=== PATIENT | female | born 1990 | race Caucasian/White ===

== ENCOUNTER 2016-05-01 16:28 | Emergency (ER) | payer MEDICAID ==
[~2016-05-01 16:28] MED LIST: MACR100C2 PO; PREN29TA PO; REGL10TA5 PO
--- NOTE | 2016-05-01 16:48 | PD ---
HPI Chief Complaint vaginal bleeding Date Seen: May 01, 2016 Time Seen: 16:40 (Kobi Manzanares MD R2) Travel History International Travel<30 Days: No Contact w/Intl Traveler<30Days: No (Kobi Manzanares MD) History of Present Illness HPI 25 year old at 16 weeks gestation presents with vaginal bleeding. She urinated today and noticed a small amount of blood. This is the only bleed she has noticed so far. It happened at 2 PM yesterday. She is not requiring any pads. She has stomach pain on the right mid abdomen that started last night. It is a 5/10. She reports no recent sexual intercourse. She has no contractions, loss of clear fluid, and is feeling the baby move. She is a patient at [facility] and reports she is up to date on care. She reports no complications in this to date. She has one miscarriage in the past at 9 weeks gestation. (Kobi Manzanares MD) History Past Medical History Narrative Medical None (Kobi Manzanares MD) Obstetric History Obstetric History Miscarriage at 9 weeks Up to date on care [facility] for OB care (Kobi Manzanares MD) Past Surgical History Narrative Surgical tonsil removal (Kobi Manzanares MD) Family History Narrative Family History Father: gallbladder cancer, heart disease Mother: ataxia (Kobi Manzanares MD) Social History Narrative Social History Smokes 5 cigarettes per day no drinking or drug use (Kobi Manzanares MD R2) Allergies-Medications (Allergen,Severity, Reaction): Coded Allergies: Tylenol #3 (Verified Allergy, Intermediate, HEART PALPATIONS, 05/01/16) Home Meds Active Scripts Vit-Iron Carbonyl ( Plus Iron 29-1 mg)1 Tab Tab1 Tab PO DAILY #30 TAB Ref 0 Prov:Sweetie Sanz DO 02/22/16 Discontinued Scripts Metoclopramide (Reglan)10 Mg Tab10 Mg PO QID PRN (NAUSEA) #20 TAB Ref 0 Prov:Sweetie Sanz DO 02/22/16 Nitrofurantoin Monohydrate Macrocrystals (Macrobid)100 Mg [id number] Mg PO BID #10 CAP Ref 0 Prov:Sweetie Sanz DO 02/22/16 Review of Systems General / Constitutional: Weight Gain, No: Fever, Weight Loss, Chills Eyes: No: Diploplia, Blurred Vision, Visual changes, Pain HENT: No: Headaches, Vertigo, Lightheadedness Cardiovascular: No: Irregular Rhythm, Chest Pain or Discomfort, Palpitations, Tachycardia, Syncope Respiratory: No: Cough, Short of Breath, Wheezing Gastrointestinal: Abdominal Pain, No: Nausea, Vomiting, Diarrhea Genitourinary: No: Urgency, Frequency, Dysuria Musculoskeletal: No: Weakness, Cramping, Edema Skin: No Rash, No Itching Neurologic: No: Weakness, Dizziness, Syncope, Focal Abnormalities, Coordination Problem, Headache, Slurred Speech Psychiatric: No: Anxiety, Depression Endocrine: No: Heat Intolerance, Cold Intolerance, Polydipsia, Polyuria (Kobi Manzanares MD R2) Physical Exam Narrative GENERAL: Well-nourished, well-developed patient. SKIN: Warm and dry. HEAD: Normocephalic and atraumatic. EYES: No scleral icterus. No injection or drainage. ENT: No nasal drainage noted. Mucous membranes pink. Airway patent. NECK: Supple, trachea midline. No JVD. CARDIOVASCULAR: Regular rate and rhythm without murmurs, gallops, or rubs. RESPIRATORY: Breath sounds equal bilaterally. No accessory muscle use. ABDOMEN/GI: Abdomen soft, non-tender, bowel sounds present, no rebound, no guarding Gravid to [-] weeks size Fundal Height: [-] GENITOURINARY: External Genitalia: intact and normal in appearance Cervix: Non-friable, closed, no obvious source of bleeding on speculum exam Dilatation: closed Uterine Contractions: [-] FHT's: Category: [-] Baseline: [-] Reactive: [-] Variability: [-] Decels: [-] EXTREMITIES: No cyanosis or edema. BACK: Nontender without obvious deformity. No CVA tenderness. NEUROLOGICAL: Awake and alert. Motor and sensory grossly within normal limits. Five out of 5 muscle strength in all muscle groups. Normal speech. (Kobi Manzanares MD R2) Data Data Vital Signs Reviewed: Yes (Kobi Manzanares MD R2) [facility] Medical Record Reviewed: Yes Interpretation(s) 25 year old at 16 weeks gestation presents with vaginal bleeding, small amount of spotting - Point of care ultrasound - Speculum exam, assess for source of bleeding and cervical dilation - Urinalysis to rule out UTI Narrative Course / MDM 25 year old at 16 weeks gestation presents with vaginal bleeding, small amount of spotting. Likely implantation bleeding. - No obvious source of bleeding on speculum exam. - Cervix closed. - POC ultrasound shows viable fetus. - No history of cervical surgery, incompetent cervix unlikely - UA with moderate leukocyte esterase, rare bacteria, 12 WBC. Will wait on urine culture before treating, currently asymptomatic. Instruct patient or Kirsten Lux to call for results of urine culture. (Kobi Manzanares MD R2) Attending Attestation Patient seen and evaluated with resident under direct supervision, agree with assessment and plan. (Anshul Pinzon MD) Diagnosis Diagnosis: Primary Impression: Second trimester bleeding Additional Impression: Abnormal urinalysis Disposition: 01 DISCHARGE HOME Condition: Good Kobi Manzanares MD R2 May 01, 2016 16:48 Anshul Pinzon MD May 01, 2016 17:33
[2016-05-01 16:49] VITALS: RESP 18; TEMP 98
[2016-05-01 16:50] VITALS: BP 131/67; PULSE 74
[2016-05-01 17:04] LABS: BACTERIA, URINE RARE /hpf; BLOOD, URINE NEG (NEG); COMMENT (UR) CULTURE INDICATED; CULTURE IF INDICATED CULTURE INDICATED; GLUCOSE,URINE NEG (NEG); KETONE, URINE NEG (NEG); MUCUS URINE FEW /lpf (OCC); NITRITE,URINE NEG (NEG); PH, URINE 6.5 (5.0-8.5); SQUAMOUS EPITHELIAL CELL URINE 3 /hpf (0-5); URINE COLOR LIGHT-YELLOW (YELLW/STRAW)
== END 2016-05-01 18:24 | disposition home or self-care (01) ==
LOC: HOBED 16:28
DX: O26.852 Spotting complicating pregnancy, second trimester (principal); Z3A.16 16 weeks gestation of pregnancy; O99.332 Smoking (tobacco) complicating pregnancy, second trimester; R82.90 Unspecified abnormal findings in urine
CPT/HCPCS: 76815; 81001; 87086

== ENCOUNTER 2016-08-24 13:57 | Emergency (ER) | payer MEDICAID ==
[~2016-08-24 13:57] MED LIST changes: -MACR100C2 PO; -REGL10TA5 PO
--- NOTE | 2016-08-24 15:02 | PD ---
HPI Date Seen: August 24, 2016 Time Seen: 14:45 (Kobi Hair MD R1) Travel History International Travel<30 Days: No Contact w/Intl Traveler<30Days: No Known Affected Area: No (Kobi Hair MD R1) History of Present Illness HPI Patient is a 25 year old at 32 weeks gestational age who presented with decreased movement. She is playing outside yesterday with her son when she fell on her left side, falling on both her son and the ground. Since that time, she noticed decreased movement. She called Kirsten Lux last night , who told her to relax to better sense movement. She went to lie down and still noticed decreased movement, which is normal when she notices the most movement. This morning, she was still noticing decreased movement and she felt weird like something might be wrong. So she presented to the [facility]. since arriving here, patient endorses movement. She denied any leakage of fluid, vaginal bleeding, contractions. However, she reports that she did not know she was having contractions during her last . She endorses a headache since Wednesday, which seemed to get worse after falling yesterday. She endorses lower extremity swelling. She denies any chest pain, shortness of breath, right upper quadrant pain, vision changes. She denies any nausea, vomiting, dysuria, section transmitted disease. Para: 1 : 3 Last Menstrual Period: August 24, 2016 (Kobi Hair MD R1) History Past Medical History Narrative Medical Patient reports that she still has to get her diabetes screen done. Medical History: Denies Significant Hx (Kobi Hair MD R1) Obstetric History Obstetric History Patient reports that her first delivered at 37 weeks via vaginal delivery. It was unconjugated. Her second was a miscarriage. (Kobi Hair MD R1) Past Surgical History Narrative Surgical She reports tonsillectomy and adenoidectomy as a child. (Kobi Hair MD R1) Family History Narrative Family History Patient denies any significant family history of problems during . Family History: Negative (Kobi Hair MD R1) Social History Narrative Social History Patient reports that she lives at home with her mother, her son, and her brother. All of them are healthy. Alcohol Use: No Tobacco Use: Yes (patient reports smoking a couple cigarettes when she is stressed) Substance Abuse: No (Kobi Hair MD R1) Allergies-Medications (Allergen,Severity, Reaction): Coded Allergies: Tylenol #3 (Verified Allergy, Intermediate, HEART PALPATIONS, 05/01/16) Home Meds Active Scripts Nitrofurantoin Monohydrate Macrocrystals (Macrobid)100 Mg [id number] Mg PO BID #13 CAP Ref 0 Prov:Alivia Mathew MD R2 08/24/16 Vit-Iron Carbonyl ( Plus Iron 29-1 mg)1 Tab Tab1 Tab PO DAILY #30 TAB Ref 0 Prov:YvonSweetie L DO 02/22/16 Narrative Medication Patient reports only taking vitamins. (Kobi Hair MD R1) Review of Systems General / Constitutional: No: Fever, Chills Eyes: No: Blurred Vision, Visual changes HENT: Headaches Cardiovascular: Edema (always present, at baseline), No: Chest Pain or Discomfort Respiratory: No: Short of Breath Gastrointestinal: No: Nausea, Vomiting, Abdominal Pain Genitourinary: No: Dysuria Skin: No Rash Neurologic: Headache (Kobi Hair MD R1) Physical Exam Narrative GENERAL: Well-nourished, well-developed patient. SKIN: Warm and dry. HEAD: Normocephalic and atraumatic. EYES: No scleral icterus. No injection or drainage. ENT: No nasal drainage noted. Mucous membranes pink. Airway patent. NECK: Supple, trachea midline. No JVD. CARDIOVASCULAR: Regular rate and rhythm without murmurs, gallops, or rubs. RESPIRATORY: Breath sounds equal bilaterally. No accessory muscle use. ABDOMEN/GI: Abdomen soft, non-tender, bowel sounds present, no rebound, no guarding Gravid to 32 weeks size FHT's: Category: Category 1 Baseline: 140 Reactive: Reactive Variability: Moderate Variability Decels: No decelerations noted EXTREMITIES: No cyanosis or edema. BACK: Nontender without obvious deformity. No CVA tenderness. NEUROLOGICAL: Awake and alert. Motor and sensory grossly within normal limits. Five out of 5 muscle strength in all muscle groups. Normal speech. (Kobi Hair MD R1) Data Data Vital Signs Reviewed: Yes (Kobi Hair MD R1) MDM Plan Patient is a 25 year old at 32 weeks gestational age who presented with decreased movement after falling yesterday. 1) decreased movement status post trauma OB ultrasound with biophysical profile without nonstress test Monitor heart tones 2) contractions noted on monitor UA showed mod leuk est, 12 WBC, rare bacteria c/f UTI. Plan to treat with Macrobid 100mg po bid for 7 days. Encourage by mouth hydration Continue to monitor tocometry (Kobi Hair MD R1) Attending Attestation Pt seen and evaluated with resident. reassuring status no evidence of PTL normal ultrasound d/c home and f/u with routine care RH + (Porsche Mayberry MD) Disposition: 01 DISCHARGE HOME Scripts Nitrofurantoin Monohydrate Macrocrystals (Macrobid)100 Mg [id number] Mg PO BID #13 CAP Ref 0 Prov:Alivia Mtahew MD R2 08/24/16 Patient Instructions: Movement (ED) Kobi Hair MD R1 August 24, 2016 15:02 Alivia Mathew MD R2 August 24, 2016 16:43 Porsche Mayberry MD August 24, 2016 19:05
[2016-08-24 16:18] LABS: BACTERIA, URINE RARE /hpf; BLOOD, URINE NEG (NEG); COMMENT (UR) CULTURE INDICATED; CULTURE IF INDICATED CULTURE INDICATED; GLUCOSE,URINE NEG (NEG); KETONE, URINE NEG (NEG); NITRITE,URINE NEG (NEG); PH, URINE 7.5 (5.0-8.5); SQUAMOUS EPITHELIAL CELL URINE 1 /hpf (0-5); URINE COLOR LIGHT-YELLOW (YELLW/STRAW)
[2016-08-24] MEDS ORDERED: MACR100C2 PO (16:42)
[2016-08-24] MEDS ORDERED: NITROFURANTOIN MONOHYD MACROCR 100 MG CAP PO ONE (16:45)
== END 2016-08-24 20:48 | disposition home or self-care (01) ==
LOC: HOBED 13:57
DX: O36.8130 Decreased fetal movements, third trimester, not applicable or unspecified (principal); O23.33 Infections of other parts of urinary tract in pregnancy, third trimester; Z3A.32 32 weeks gestation of pregnancy; B96.89 Other specified bacterial agents as the cause of diseases classified elsewhere; W18.39XA Other fall on same level, initial encounter; Y93.89 Activity, other specified; Y92.89 Other specified places as the place of occurrence of the external cause; Y99.8 Other external cause status
CPT/HCPCS: 59025; 76816; 76819; 81001; 87086

== ENCOUNTER 2016-10-09 12:02 | Inpatient (IN) | payer MEDICAID ==
[2016-10-09] VITALS (54 sets, daily range): BP systolic 99–130; BP diastolic 40–94; PULSE 51–87; RESP 18; TEMP 97.7–98.7
[~2016-10-09 12:02] MED LIST changes: +MACR100C2 PO
--- NOTE | 2016-10-09 12:33 | PD ---
HPI Travel History International Travel<30 Days: No Contact w/Intl Traveler<30Days: No Known Affected Area: No History of Present Illness HPI This patient is a 25-year-old 3 para 1011 EDC is October 16, 2016 presently at 39 weeks. She presents with chief complaint of a pinkish discharge in her underwear she wiped and saw the pinkish discharge on the tissue no rupture of membranes not feeling any contractions. No rupture of membranes no headaches no blurred vision no nausea no vomiting no alvina bright red vaginal bleeding the baby is active care with Kirsten Lux course is significant for previous fall for which she was evaluated Treated for UTI Patient was seen on Wednesday by Kirsten Lux and she was 2 cm at that time Her GBS is positive History Past Medical History Narrative Medical Patient is allergic to codeine denies any medical problems Obstetric History Obstetric History First baby born April 10, 2013 male weight 6 lbs. 4 oz. vaginal delivery uncomplicated Spontaneous AB at 8 weeks Past Surgical History Narrative Surgical Surgeries include tonsils and adenoids Tubes in her ears Family History Narrative Family History Heart disease bladder cancer diabetes ataxia Social History Alcohol Use: No Tobacco Use: Yes (smokes a half a pack of cigarettes per day) Substance Abuse: No Allergies-Medications (Allergen,Severity, Reaction): Coded Allergies: Tylenol #3 (Verified Allergy, Intermediate, HEART PALPATIONS, 05/01/16) Home Meds Active Scripts Nitrofurantoin Monohydrate Macrocrystals (Macrobid)100 Mg [id number] Mg PO BID #13 CAP Ref 0 Prov:Alivia Mathew MD R2 08/24/16 Vit-Iron Carbonyl ( Plus Iron 29-1 mg)1 Tab Tab1 Tab PO DAILY #30 TAB Ref 0 Prov:Sweetie Sanz DO 02/22/16 Review of Systems Genitourinary: Other (pinkish vaginal discharge) Physical Exam Narrative GENERAL: Well-nourished, well-developed patient. Alert oriented 3 and cooperative in no acute distress SKIN: Warm and dry. HEAD: Normocephalic and atraumatic. EYES: No scleral icterus. No injection or drainage. ENT: No nasal drainage noted. Mucous membranes pink. Airway patent. CARDIOVASCULAR: Regular rate and rhythm without murmurs, gallops, or rubs. RESPIRATORY: Breath sounds equal bilaterally. No accessory muscle use. ABDOMEN/GI: Gravid consistent with stated gestational age no epigastric or right upper quadrant tenderness no palpable contractions the baby is active Gravid to [-] weeks size term Fundal Height: [-] GENITOURINARY: Speculum exam is done no bright red vaginal bleeding pinkish discharge no fluid in the vault External Genitalia: intact and normal in appearance no lesions seen BUS glands: [-] Cervix: [-] Midline Dilatation: [-] 2-3 Effacement: [-] 80% Station: [-] -2 Presentation: [-] Vertex Membranes: [intact Uterine Contractions: [-] Occasional FHT's: Category: [-] 1 Baseline: [-] 140 Reactive: [-]+ Variability: [-] Moderate Decels: [-] 0 EXTREMITIES: No cyanosis or edema. 2+ reflexes NEUROLOGICAL: Awake and alert. Motor and sensory grossly within normal limits. Five out of 5 muscle strength in all muscle groups. Normal speech. Data Data Vital Signs Reviewed: Yes (blood pressure 123/68 pulse is 81 afebrile) [facility] Medical Record Reviewed: Yes (pink heart reviewed) Interpretation(s) 25-year-old at 39 weeks No cervical change from exam on Wednesday Group B strep positive Narrative Course / MDM Patient reexamined after 1 hour 100% effaced 5 cm dilated with the vertex at a -2 station Membranes are intact Category 1 tracing vital signs are stable Will admit patient in active labor Group B strep is positive we'll place on penicillin Does not require an epidural at this time Anticipate vaginal delivery Plan Plan: External monitoring By mouth fluid hydration Observation and reevaluation Ally Chaudhari MD Oct 09, 2016 12:33
[2016-10-09] MEDS ORDERED: LACTATED RINGER'S 1000 ML INJ 1,000 ML IV PRN (13:26)
--- NOTE | 2016-10-09 13:29 | HHI.HP ---
History & Physical H&P Contact w/Intl Traveler<30Days: No Known Affected Area: No History of Present Illness HPI This patient is a 25-year-old 3 para 1011 EDC is October 16, 2016 presently at 39 weeks. She presents with chief complaint of a pinkish discharge in her underwear she wiped and saw the pinkish discharge on the tissue no rupture of membranes not feeling any contractions. No rupture of membranes no headaches no blurred vision no nausea no vomiting no alvina bright red vaginal bleeding the baby is active care with Kirsten Lux course is significant for previous fall for which she was evaluated Treated for UTI Patient was seen on Wednesday by Kirsten Lux and she was 2 cm at that time Her GBS is positive History (Limited) History Past Medical History Narrative Medical Patient is allergic to codeine denies any medical problems Obstetric History Obstetric History First baby born April 10, 2013 male infant weight 6 lbs. 4 oz. vaginal delivery uncomplicated Spontaneous AB at 8 weeks Past Surgical History Narrative Surgical Surgeries include tonsils and adenoids Tubes in her ears Family History Narrative Family History Heart disease bladder cancer diabetes ataxia Social History Alcohol Use: No Tobacco Use: Yes (smokes a half a pack of cigarettes per day) Substance Abuse: No Allergies-Medications Allergies-Medications (Allergen,Severity, Reaction): Coded Allergies: Tylenol #3 (Verified Allergy, Intermediate, HEART PALPATIONS, 05/01/16) Home Meds Active Scripts Nitrofurantoin Monohydrate Macrocrystals (Macrobid)100 Mg [id number] Mg PO BID #13 CAP Ref 0 Prov:Alivia Mathew MD R2 08/24/16 Vit-Iron Carbonyl ( Plus Iron 29-1 mg)1 Tab Tab1 Tab PO DAILY #30 TAB Ref 0 Prov:Sweetie Sanz DO 02/22/16 ROS Review of Systems Genitourinary: Other (pinkish vaginal discharge) Physical Exam Physical Exam Narrative GENERAL: Well-nourished, well-developed patient. Alert oriented 3 and cooperative in no acute distress SKIN: Warm and dry. HEAD: Normocephalic and atraumatic. EYES: No scleral icterus. No injection or drainage. ENT: No nasal drainage noted. Mucous membranes pink. Airway patent. CARDIOVASCULAR: Regular rate and rhythm without murmurs, gallops, or rubs. RESPIRATORY: Breath sounds equal bilaterally. No accessory muscle use. ABDOMEN/GI: Gravid consistent with stated gestational age no epigastric or right upper quadrant tenderness no palpable contractions the baby is active Gravid to [-] weeks size term Fundal Height: [-] GENITOURINARY: Speculum exam is done no bright red vaginal bleeding pinkish discharge no fluid in the vault External Genitalia: intact and normal in appearance no lesions seen BUS glands: [-] Cervix: [-] Midline Dilatation: [-] 2-3 Effacement: [-] 80% Station: [-] -2 Presentation: [-] Vertex Membranes: [intact Uterine Contractions: [-] Occasional FHT's: Category: [-] 1 Baseline: [-] 140 Reactive: [-]+ Variability: [-] Moderate Decels: [-] 0 EXTREMITIES: No cyanosis or edema. 2+ reflexes NEUROLOGICAL: Awake and alert. Motor and sensory grossly within normal limits. Five out of 5 muscle strength in all muscle groups. Normal speech. Data Data Data Vital Signs Reviewed: Yes (blood pressure 123/68 pulse is 81 afebrile) [facility] Medical Record Reviewed: Yes (pink heart reviewed) Interpretation(s) 25-year-old at 39 weeks No cervical change from exam on Wednesday Group B strep positive Narrative Course / MDM Patient reexamined after 1 hour 100% effaced 5 cm dilated with the vertex at a -2 station Membranes are intact Category 1 tracing vital signs are stable Will admit patient in active labor Group B strep is positive we'll place on penicillin Does not require an epidural at this time Anticipate vaginal delivery Plan Plan: External monitoring By mouth fluid hydration Observation and reevaluation Ally Chaudhari MD Oct 09, 2016 12:33 Ally Chaudhari MD Oct 09, 2016 13:29
[2016-10-09] MEDS ORDERED: LIDOCAINE HCL 1% 50 ML VIAL INFIL PRN (13:30)
[2016-10-09] MEDS ORDERED: SODIUM CHLORID 0.9% 500 ML INJ 500 ML IV PRN (13:30)
[2016-10-09] MEDS ORDERED: ONDANSETRON HCL 4 MG/2 ML VIAL IV PRN (13:30)
[2016-10-09] MEDS ORDERED: OXYTOCIN 30 UNITS-500ML PREMIX 500 ML IV ONE (13:30)
[2016-10-09] MEDS ORDERED: LIDOCAINE HCL 1% 50 ML VIAL I-DERMAL PRN (13:30)
[2016-10-09] MEDS ORDERED: CITRIC ACID-SODIUM CITRATE LIQ 30 ML UDC PO SCH (13:30)
[2016-10-09] MEDS ORDERED: MINERAL OIL 10 ML VIAL TOPICAL PRN (13:30)
[2016-10-09] MEDS ORDERED: SODIUM CHLOR 0.9% 1000 ML INJ 1,000 ML IV PRN (13:46)
[2016-10-09] MEDS ORDERED: PENICILLIN G POTASSIUM INJ 5,000,000 UNITS in SODIUM CHLORIDE 0.9% INJ 100 ML IV ONE (14:00)
[2016-10-09 14:16] LABS: AUTOMATED NEUTROPHIL # 7.7 TH/MM3 (1.8-7.7); BASOPHIL % 0.4 % (0.0-2.0); EOSINOPHIL # 0.1 TH/MM3 (0-0.4); EOSINOPHIL % 1.2 % (0.0-4.0); HEMATOCRIT 34.8 % (35.0-46.0); HEMO FLAGS DIFF FINAL; LYMPH % 18.5 % (9.0-44.0); LYMPHOCYTE # 1.9 TH/MM3 (1.0-4.8); MEAN CELL VOLUME 94.9 FL (80.0-100.0); MEAN CORPUSCULAR HGB CONC 34.7 % (32.0-36.0); NEUT % 73.9 % (16.0-70.0); PLATELET COUNT 190 TH/MM3 (150-450); RED BLOOD COUNT 3.67 MIL/MM3 (4.00-5.30); RED CELL DISTRIBUTION WIDTH 12.4 % (11.6-17.2); WHITE BLOOD COUNT 10.5 TH/MM3 (4.0-11.0)
[2016-10-09] MEDS: LACTATED RINGER'S 1000 ML INJ 1,000 ML IV SCH ×2 (14:19→18:02)
[2016-10-09 14:23] LABS: BACTERIA, URINE RARE /hpf; BLOOD, URINE MOD (NEG); COMMENT (UR) CULT NOT INDICATED; CULTURE IF INDICATED CULT NOT INDICATED; GLUCOSE,URINE NEG (NEG); KETONE, URINE NEG (NEG); NITRITE,URINE NEG (NEG); SQUAMOUS EPITHELIAL CELL URINE <1 /hpf (0-5); URINE COLOR LIGHT-YELLOW (YELLW/STRAW)
--- NOTE | 2016-10-09 14:48 | PD.LABORPN ---
Subjective Subjective Patient resting comfortably in bed, she is not feeling contractions. Objective Vital Signs Vital Signs Date Time Temp Pulse Resp B/P Pulse Ox O2 Delivery O2 Flow Rate FiO2 10/09/16 14:30 18 10/09/16 14:28 68 122/64 Objective Pelvic Exam: Cervix: midposition Dilatation: 7 Effacement: 100 Station: -2 Presentation: vertex Membranes: intact, bulging Uterine Contractions: q1-4h FHT's: Category: I Baseline: 135 Reactive: + Variability: moderate Decels: none Assessment/Plan Assessment and Plan 25 year old at 39-0/7 weeks gestation. 1. IUP- Category I tracing, reassuring. 2. Labor progressing spontaneously 3. GBS positive- Penicillin per protocol 4. Anticipate dw Dr. Ni and Dr. Orestes Mathew R1 Yasmin Brenner MD R2 Oct 09, 2016 14:48
[2016-10-09] MEDS ORDERED: MEASLES, MUMPS, RUBELLA VACCINE 0.5 ML VIAL SQ ONE (16:00)
[2016-10-09] MEDS ORDERED: DIPHTH/TETANUS/ACEL PERTUSSIS (BOOSTER) 0.5 ML VIAL/PFS IM ONE (16:00)
--- NOTE | 2016-10-09 16:16 | PD.LABORPN ---
Subjective Subjective Patient is in no apparent distress and has no complaints. First penicillin dose 1 and at 1416. Objective Vital Signs Vital Signs Date Time Temp Pulse Resp B/P Pulse Ox O2 Delivery O2 Flow Rate FiO2 10/09/16 15:57 98.0 10/09/16 15:28 60 113/63 10/09/16 14:30 18 10/09/16 14:30 98.6 10/09/16 14:28 68 122/64 Objective Pelvic Exam: Cervix: 7/100/-2 Presentation: Vertex, ballotable Membranes: Intact Uterine Contractions: Every 2-5 FHT's: Category: 1 Baseline: 130 Reactive: To 160 Variability: mod Decels: absent Assessment/Plan Assessment and Plan 25 year old at 39-0/7 weeks gestation. 1. IUP- Category I tracing, reassuring. 2. Labor progressing spontaneously 3. GBS positive- Penicillin per protocol 4. Anticipate 5. Cervix 7/100%/-[address] Ni and Dr. Lucien Brenner PGY2 Laurel Mathew MD R1 Oct 09, 2016 16:16
[2016-10-09] MEDS ORDERED: fentaNYL 2MCG-BUPIV 0.125% INJ 100 ML ONE (17:30)
[2016-10-09] MEDS ORDERED: PENICILLIN G POTASSIUM INJ 2,500,000 UNITS in SODIUM CHLORIDE 0.9% INJ 100 ML IV SCH (18:00)
[2016-10-09] MEDS ORDERED: DO NOT ADMINISTER ANTICOAGULANTS PRN (18:15)
[2016-10-09] MEDS ORDERED: NO SYSTEM NARCOTICS PRN (18:15)
[2016-10-09] MEDS ORDERED: fentaNYL 2MCG-BUPIV 0.125% 100 ML EPIDURAL SCH (18:15)
[2016-10-09] MEDS ORDERED: ePHEDrine/NS 25 MG/5 ML SYR IV PRN (18:15)
--- NOTE | 2016-10-09 19:02 | PD.LABORPN ---
Subjective Subjective Patient resting comfortably with epidural in place. Objective Vital Signs Vital Signs Date Time Temp Pulse Resp B/P Pulse Ox O2 Delivery O2 Flow Rate FiO2 10/09/16 18:35 70 10/09/16 18:31 68 115/64 10/09/16 18:30 68 10/09/16 18:25 75 10/09/16 18:20 73 10/09/16 18:16 74 118/69 10/09/16 18:15 66 10/09/16 18:11 67 116/57 10/09/16 18:10 67 10/09/16 18:06 72 110/57 10/09/16 18:05 66 10/09/16 18:03 18 10/09/16 18:01 63 118/50 10/09/16 18:00 69 10/09/16 17:59 64 113/51 10/09/16 17:57 98.0 69 18 106/50 10/09/16 17:55 74 114/51 10/09/16 17:53 71 105/49 10/09/16 17:51 75 104/46 10/09/16 17:50 73 10/09/16 17:49 72 99/40 10/09/16 17:47 63 106/46 10/09/16 17:45 63 10/09/16 17:44 74 122/71 10/09/16 16:27 51 121/63 10/09/16 15:57 98.0 10/09/16 15:28 60 113/63 10/09/16 14:30 18 10/09/16 14:30 98.6 10/09/16 14:28 68 122/64 Objective Pelvic Exam: Cervix: midposition Dilatation: 8 Effacement: 100 Station: -1 Presentation: vertex Membranes: AROM, clear fluid Uterine Contractions: q2-3min FHT's: Category: I Baseline: 130 Reactive: + Variability: moderate Decels: none Assessment/Plan Assessment and Plan 25 year old at 39-0/7 weeks gestation. 1. IUP- Category I tracing, reassuring. 2. Labor progressing, AROM with clear fluid, 8/100/-1 3. GBS positive- Penicillin per protocol 4. Anticipate sdw Dr. Ni and Dr. Lucien Brenner PGY2 Yasmin Brenner MD R2 Oct 09, 2016 19:02
--- NOTE | 2016-10-09 20:55 | PD.OB.DELI ---
Delivery Date: Oct 09, 2016 Anesthesia: Epidural Episiotomy: None Vaginal Delivery: Normal, Spontaneous Presentation: Occiput anterior Nuchal Cord: None Delayed cord clamping (45 sec): Yes Infant: Male One Minute : 8 Five Minute : 9 Weight: 6 pounds 5 ounces Placenta: Spontaneous delivery, Intact, 3 vessel cord Additional Information 25 year old now delivered at 39 and 0/7 weeks gestation over an intact perineum. Apgars were 8/9 at 1 and 5 minutes respectively. weight 6 pounds 5 ounces. Placenta delivered spontaneously, intact, with 3-vessel cord. EBL < 500 cc. Johnathon Laguna MD R1 Oct 09, 2016 20:55
[2016-10-09] MEDS ORDERED: SODIUM CHLORIDE 0.9% FLUSH 10 ML FLUSH IV FLUSH SCH (21:00)
[2016-10-09] MEDS ORDERED: WITCH HAZEL 50%/GLYCERIN 12.5% 40 PAD JAR TOPICAL PRN (21:00)
[2016-10-09] MEDS ORDERED: oxyCODONE/ACETAMINOPHEN 5 MG/325 MG TAB PO PRN ×2 (21:00)
[2016-10-09] MEDS ORDERED: BENZOCAINE 20% TOPICAL SPRAY 60 ML CAN TOPICAL PRN (21:00)
[2016-10-09] MEDS ORDERED: ZOLPIDEM TARTRATE 5 MG TAB PO PRN (21:00)
[2016-10-09] MEDS ORDERED: SODIUM CHLORIDE 0.9% FLUSH 10 ML FLUSH IV FLUSH PRN (21:00)
[2016-10-09] MEDS ORDERED: DOCUSATE SODIUM 50 MG/SENNA 8.6 MG TAB PO PRN (21:15)
[2016-10-09] MEDS ORDERED: IBUPROFEN 600 MG TAB PO PRN (22:00)
[2016-10-09] MEDS ORDERED: ONDANSETRON ODT 4 MG TAB PO PRN (22:00)
[2016-10-09] MEDS ORDERED: ALUMINUM/MAGNESIUM/SIMETH 30 ML CUP PO PRN (22:00)
[2016-10-09] MEDS ORDERED: ACETAMINOPHEN 325 MG TAB PO PRN (22:00)
--- NOTE | 2016-10-10 05:56 | HHI.OB ---
Subjective Remarks No acute issues overnight. Vitals are stable, patient remains afebrile. She has minimal soreness and her vaginal bleeding is decreasing. She denies any chest pain, shortness of breath, or leg pain. She is bonding well with . Objective Vitals/I&O Vital Signs Date Time Temp Pulse Resp B/P Pulse Ox O2 Delivery O2 Flow Rate FiO2 10/09/16 23:00 97.7 64 18 106/73 10/09/16 21:46 109/55 10/09/16 21:46 68 10/09/16 21:45 18 10/09/16 21:31 64 116/55 10/09/16 21:30 18 10/09/16 21:16 108/94 10/09/16 21:16 65 10/09/16 21:15 18 10/09/16 21:01 77 10/09/16 21:01 119/54 10/09/16 21:00 18 10/09/16 21:00 98.7 10/09/16 20:46 78 130/68 10/09/16 20:31 65 109/67 10/09/16 20:16 74 122/70 10/09/16 20:02 18 10/09/16 20:01 75 114/66 10/09/16 19:46 75 103/47 10/09/16 19:31 61 115/62 10/09/16 19:16 67 109/64 10/09/16 19:15 98.5 18 10/09/16 19:05 74 10/09/16 19:01 74 109/52 10/09/16 19:00 59 10/09/16 18:55 87 10/09/16 18:50 72 10/09/16 18:46 67 118/64 10/09/16 18:45 72 10/09/16 18:40 72 10/09/16 18:35 70 10/09/16 18:31 68 115/64 10/09/16 18:30 68 10/09/16 18:25 75 10/09/16 18:20 73 10/09/16 18:16 74 118/69 10/09/16 18:15 66 10/09/16 18:11 67 116/57 10/09/16 18:10 67 10/09/16 18:06 72 110/57 10/09/16 18:05 66 10/09/16 18:03 18 10/09/16 18:01 63 118/50 10/09/16 18:00 69 10/09/16 17:59 64 113/51 10/09/16 17:57 98.0 69 18 106/50 10/09/16 17:55 74 114/51 10/09/16 17:53 71 105/49 10/09/16 17:51 75 104/46 10/09/16 17:50 73 10/09/16 17:49 72 99/40 10/09/16 17:47 63 106/46 10/09/16 17:45 63 10/09/16 17:44 74 122/71 10/09/16 16:27 51 121/63 10/09/16 15:57 98.0 10/09/16 15:28 60 113/63 10/09/16 14:30 18 10/09/16 14:30 98.6 10/09/16 14:28 68 122/64 Objective Remarks GENERAL: Well-nourished, well-developed patient. CARDIOVASCULAR: Regular rate and rhythm without murmurs, gallops, or rubs. RESPIRATORY: Breath sounds equal bilaterally. No accessory muscle use. Inspiratory and expiratory wheezing bilaterally. ABDOMEN/GI: Abdomen soft, non-tender. Fundus: Firm, non-tender at umbilicus. GENITOURINARY: Light to moderate bleeding. EXTREMITIES: No cyanosis or edema, non-tender, without signs of DVT. Medications and IVs Current Medications Medications (Trade) Dose Ordered Sig/Chani Route Start Time Stop Time Status Last Admin Lactated Ringer's 1,000 ml @ 125 mls/hr Q8H IV 10/09/16 13:26 10/09/16 18:02 Lactated Ringer's 1,000 ml @ 3,000 mls/hr Q20M PRN IV 10/09/16 13:26 Sodium Chloride 500 ml @ 1,000 mls/hr ONCE PRN IV 10/09/16 13:30 10/10/16 13:29 (NS 1000 ml Inj) 1,000 ml @ 100 mls/hr Q10H PRN IV 10/09/16 13:46 (Zofran Inj) 4 mg Q6H PRN IV 10/09/16 13:30 (fentaNYL INJ) 50 mcg Q1H PRN IV PUSH 10/09/16 13:30 Fentanyl Citrate 100 mcg 100 mcg Q1H PRN IV PUSH 10/09/16 13:30 (Pfizerpen-G Inj/ NS Inj) 100 ml @ 200 mls/hr Q4H IV 10/09/16 18:00 10/09/16 18:03 (Muri-Lube Oil) 10 ml UNSCH PRN TOPICAL 10/09/16 13:30 Miscellaneous Information No systemic narcotics to be given except... UNSCH PRN .XX 10/09/16 18:15 10/10/16 18:14 Miscellaneous Information DO NOT ADMINISTER ANY ANTICOAGUL... UNSCH PRN .XX 10/09/16 18:15 10/10/16 18:14 (fentaNYL 2MCG-BUPIV 0.125% INJ) 100 ml @ 0 mls/hr TITRATE EPIDURAL 10/09/16 18:15 (ePHEDrine/NS 25 MG/5 ML SYR) 10 mg UNSCH PRN IV 10/09/16 18:15 10/10/16 18:14 (NS Flush) 2 ml BID IV FLUSH 10/09/16 21:00 (NS Flush) 2 ml UNSCH PRN IV FLUSH 10/09/16 21:00 (Tylenol) 650 mg Q4H PRN PO 10/09/16 22:00 (Motrin) 600 mg Q6H PRN PO 10/09/16 22:00 (Percocet 5-325 Mg) 1 tab Q4H PRN PO 10/09/16 21:00 (Percocet 5-325 Mg) 2 tab Q4H PRN PO 10/09/16 21:00 (Americaine 20% Top Spr) 1 spray Q4H PRN TOPICAL 10/09/16 21:00 (Tucks Pads) 1 applic QID PRN TOPICAL 10/09/16 21:00 (Eneida-Colace) 2 tab Q12HR PRN PO 10/09/16 21:15 (Ambien) 5 mg HS PRN PO 10/09/16 21:00 (Mag-Al Plus Susp Liq) 15 ml Q8H PRN PO 10/09/16 22:00 (Zofran Odt) 4 mg Q6H PRN PO 10/09/16 22:00 Assessment/Plan Assessment and Plan 25 y/o female who is PPD# 1 s/p . -Continue routine care. - Patient denies shortness of breath but states that she is a smoker. Will give Albuterol inh Q6H for wheezing. -Percocet and Motrin PRN pain. -Encouraged OOB. Advised pelvic rest for 6 wks. -Re: ctrl, she would like Depo-Provera. Will administer prior to discharge. -Anticipate discharge home tomorrow. Yasmin Acevedo Dr., MD R2 Oct 10, 2016 05:56
[2016-10-10] MEDS ORDERED: ALBUTEROL SULFATE 90 MCG/ACT HFA 8 GM INHALER INH SCH (06:30)
[2016-10-10 08:00] VITALS: BP 110/62; PULSE 65; RESP 16; TEMP 97.9
[2016-10-10] MEDS ORDERED: ALBUTEROL SULFATE 90 MCG/ACT HFA 18 GM INHALER INH SCH (14:00)
[2016-10-10 20:45] VITALS: BP 112/71; PULSE 65; RESP 18; TEMP 97.9
[2016-10-11 07:42] VITALS: BP 119/64; PULSE 52; RESP 18; TEMP 97.8
--- NOTE | 2016-10-11 08:40 | HHI.OB ---
Subjective Post Day: 2 Remarks day #2. AFVSS overnight. Pain well controlled. Lochia greater than a period. She is feeding the baby via breast. Appetite good. No nausea or vomiting. Positive flatus. Ambulating well. Denies calf pain, shortness of breath, or cough. Otherwise, she is doing well this morning and has no other complaints. Objective Vitals/I&O Vital Signs Date Time Temp Pulse Resp B/P Pulse Ox O2 Delivery O2 Flow Rate FiO2 10/11/16 07:42 97.8 52 18 119/64 10/10/16 20:45 97.9 65 18 112/71 Objective Remarks GENERAL: Well-nourished, well-developed patient. CARDIOVASCULAR: Regular rate and rhythm without murmurs, gallops, or rubs. RESPIRATORY: Breath sounds equal bilaterally. No accessory muscle use. Inspiratory and expiratory wheezing bilaterally. ABDOMEN/GI: Abdomen soft, non-tender. Fundus: Firm, non-tender at umbilicus. GENITOURINARY: Light to moderate bleeding. EXTREMITIES: No cyanosis or edema, non-tender, without signs of DVT. Medications and IVs Current Medications Medications (Trade) Dose Ordered Sig/Chani Route Start Time Stop Time Status Last Admin Lactated Ringer's 1,000 ml @ 125 mls/hr Q8H IV 10/09/16 13:26 10/09/16 18:02 Lactated Ringer's 1,000 ml @ 3,000 mls/hr Q20M PRN IV 10/09/16 13:26 (NS 1000 ml Inj) 1,000 ml @ 100 mls/hr Q10H PRN IV 10/09/16 13:46 (Zofran Inj) 4 mg Q6H PRN IV 10/09/16 13:30 (fentaNYL INJ) 50 mcg Q1H PRN IV PUSH 10/09/16 13:30 Fentanyl Citrate 100 mcg 100 mcg Q1H PRN IV PUSH 10/09/16 13:30 (Pfizerpen-G Inj/ NS Inj) 100 ml @ 200 mls/hr Q4H IV 10/09/16 18:00 10/09/16 18:03 Mineral Oil 10 ml 10 ml UNSCH PRN TOPICAL 10/09/16 13:30 (fentaNYL 2MCG-BUPIV 0.125% INJ) 100 ml @ 0 mls/hr TITRATE EPIDURAL 10/09/16 18:15 (NS Flush) 2 ml BID IV FLUSH 10/09/16 21:00 (NS Flush) 2 ml UNSCH PRN IV FLUSH 10/09/16 21:00 (Tylenol) 650 mg Q4H PRN PO 10/09/16 22:00 (Motrin) 600 mg Q6H PRN PO 10/09/16 22:00 (Percocet 5-325 Mg) 1 tab Q4H PRN PO 10/09/16 21:00 (Percocet 5-325 Mg) 2 tab Q4H PRN PO 10/09/16 21:00 (Americaine 20% Top Spr) 1 spray Q4H PRN TOPICAL 10/09/16 21:00 (Tucks Pads) 1 applic QID PRN TOPICAL 10/09/16 21:00 (Eneida-Colace) 2 tab Q12HR PRN PO 10/09/16 21:15 (Ambien) 5 mg HS PRN PO 10/09/16 21:00 (Mag-Al Plus Susp Liq) 15 ml Q8H PRN PO 10/09/16 22:00 (Zofran Odt) 4 mg Q6H PRN PO 10/09/16 22:00 (Ventolin Hfa Inh) 2 puff Q6HR INH 10/10/16 14:00 10/10/16 14:00 Assessment/Plan Assessment and Plan 25 y/o female who is PPD# 2 s/p . -Continue routine care. - Patient denies shortness of breath but states that she is a smoker. Will continue Albuterol inh Q6H for wheezing. -Percocet and Motrin PRN pain. -Encouraged OOB. Advised pelvic rest for 6 wks. -Re: ctrl, she would like Depo-Provera. Will administer prior to discharge. -Anticipate discharge home today. keri Pinzon Discharge Planning Discharge home today Nohemy Justice MD R1 Oct 11, 2016 08:40
[2016-10-11] MEDS ORDERED: VENTAER INH (08:48)
[2016-10-11] MEDS ORDERED: IBUP-232 PO (08:48)
--- NOTE | 2016-10-11 08:48 | HHI.DCPOC ---
Discharge Care Plan Diagnosis: (1) (2) Wheezing Report Symptoms to Your Doctor -Temperature above 100.5 degrees -Redness, of incision or excessive or foul smelling drainage -Unusual pain or calf pain -Increased vaginal bleeding -Painful or difficulty urinating -Feelings of extreme sadness or anxiety after 2 weeks Goals to Promote Your Health * To prevent worsening of your condition and complications * To maintain your health at the optimal level Directions to Meet Your Goals Take your medications as prescribed Follow your dietary instruction Follow activity as directed Ensure plenty of rest for recovery Drink fluids for hydration Keep your appointments as scheduled Take your immunizations and boosters as scheduled If your symptoms worsen call your PCP, if no PCP go to Urgent Care Center or Emergency Room Smoking is Dangerous to Your Health. Avoid second hand smoke Call the 24-hour crisis hotline for domestic abuse at Nohemy Justice MD R1 Oct 11, 2016 08:48
== END 2016-10-11 13:08 | disposition home or self-care (01) | DRG 775 ==
LOC: HOBED 12:02 → H2EA 13:31 → H1EA 22:49
PROVIDERS: ADMIT Obstetrics & Gynecology; ATTEND Obstetrics & Gynecology
PROC: 10E0XZZ Delivery of Products of Conception, External Approach (ICD-10-PCS; principal; 2016-10-09)
PROC: 10907ZC Drainage of Amniotic Fluid, Therapeutic from Products of Conception, Via Natural or Artificial Opening (ICD-10-PCS; 2016-10-09)
DX: O99.824 Streptococcus B carrier state complicating childbirth (principal); R06.2 Wheezing; Z37.0 Single live birth; Z3A.39 39 weeks gestation of pregnancy; O99.334 Smoking (tobacco) complicating childbirth
CPT/HCPCS: 81001; 85025; 90715; 99285; J2540; J7120

== ENCOUNTER 2017-05-14 11:52 | Emergency (ER) | payer MEDICAID ==
[~2017-05-14] VITALS: Ht 165.1 cm; Wt 107.9 kg
[~2017-05-14 11:52] MED LIST changes: +IBUP-232 PO; -MACR100C2 PO; +VENTAER INH
[2017-05-14 11:54] VITALS: BP 127/61; PULSE 79; RESP 16; TEMP 97.9; O2SAT 96
[2017-05-14] MEDS ORDERED: TYLE325T PO (12:12)
[2017-05-14 12:20] LABS: BLOOD, URINE NEG (NEG); GLUCOSE,URINE NEG (NEG); KETONE, URINE 15 mg/dL (NEG); NITRITE,URINE NEG (NEG); URINE LEUKOCYTE ESTERASE TRACE (NEG)
[2017-05-14 12:24] LABS: BILIRUBIN, URINE NEGATIVE (NEG)
[2017-05-14 12:28] LABS: URINE COLOR YELLOW (YELLW/STRAW)
[2017-05-14 12:32] LABS: AMORPHOUS SEDIMENT, URINE FEW; BACTERIA, URINE FEW /hpf; RBC, URINE 0-3 /hpf (0-3); SQUAMOUS EPITHELIAL CELL URINE > 8 /hpf (0-5); WHITE BLOOD CELL CLUMPS FEW
--- NOTE | 2017-05-14 12:57 | PD ---
HPI Chief Complaint: Abdominal Pain Time Seen by Provider: 12:47 Travel History International Travel<30 days: No Contact w/Intl Traveler<30days: No Traveled to known affect area: No History of Present Illness HPI 26 years old female complains of abdominal pain. Patient states that she started having cramping pain sharp pain localized to right upper quadrant of the abdomen. Patient states that the pain started 3 days ago. Patient denies any pain radiation. Patient denies nausea vomiting diarrhea. Patient denies any dysuria or frequency. Patient denies any vaginal discharge or bleeding. Patient denies history of gallbladder disease before in the past. Patient has history of recurrent UTI. PFSH Past Medical History Diminished Hearing: No Headaches: Yes Integumentary: Yes (STAPH INFECTION-ARM PIT (RIGHT)) Immunizations Current: Yes Influenza Vaccination: No ?: Not : 3 Para: 1 Miscarriage: 2 : 0 Past Surgical History Tonsillectomy: Yes (AT 3Y/O) Family History Family Hypercholesterolemia: Yes (FATHER AND MOTHER) Social History Alcohol Use: No Tobacco Use: Yes (smokes a half a pack of cigarettes per day) Substance Use: No Allergies-Medications (Allergen,Severity, Reaction): Coded Allergies: codeine (Unverified Allergy, Severe, 05/14/17) heart palpitations Reported Meds & Prescriptions Reported Meds & Active Scripts Active Reported Tylenol (Acetaminophen) 325 Mg Tab 650 Mg PO Q4H PRN Review of Systems General / Constitutional: No: Fever Eyes: No: Visual changes HENT: No: Headaches Cardiovascular: No: Chest Pain or Discomfort Respiratory: No: Shortness of Breath Gastrointestinal: Positive: Abdominal Pain Genitourinary: No: Dysuria Musculoskeletal: No: Pain Skin: No Rash Neurologic: No: Weakness Psychiatric: No: Depression Endocrine: No: Polydipsia Hematologic/Lymphatic: No: Easy Bruising Physical Exam Narrative GENERAL: Well-nourished, well-developed patient. SKIN: Focused skin assessment warm/dry. HEAD: Normocephalic. EYES: No scleral icterus. No injection or drainage. NECK: Supple, trachea midline. No JVD or lymphadenopathy. CARDIOVASCULAR: Regular rate and rhythm without murmurs, gallops, or rubs. RESPIRATORY: Breath sounds equal bilaterally. No accessory muscle use. GASTROINTESTINAL: Abdomen soft, nondistended. Patient has mild to moderate tenderness on palpation right upper quadrant of the abdomen. No rebound tenderness. No mass. MUSCULOSKELETAL: No cyanosis, or edema. BACK: Nontender without obvious deformity. No CVA tenderness. Neurologic exam normal. Data Data Last Documented VS Vital Signs Date Time Temp Pulse Resp B/P (MAP) Pulse Ox O2 Delivery O2 Flow Rate FiO2 05/14/17 13:10 98 Room Air 05/14/17 11:54 97.9 79 16 127/61 (83) Orders Orders Urinalysis - C+S If Indicated (05/14/17 11:54) Ed Urine Pregnancytest Poc (05/14/17 11:54) Urine Culture (05/14/17 12:07) Complete Blood Count With Diff (05/14/17 12:52) Comprehensive Metabolic Panel (05/14/17 12:52) Lipase (05/14/17 12:52) Us Abdomen Gallbladder (05/14/17 ) Iv Access Insert/Monitor (05/14/17 12:52) Ecg Monitoring (05/14/17 12:52) Oximetry (05/14/17 12:52) Sodium Chloride 0.9% Flush (Ns Flush) (05/14/17 13:00) Labs Laboratory Tests Test 05/14/17 12:07 05/14/17 13:10 Urine Collection Type CLEAN CATCH Urine Color YELLOW Urine Turbidity CLEAR Urine pH 6.0 Urine Specific [place] GREATER THAN 1.035 Urine Protein 30 mg/dL Urine Glucose (UA) NEG mg/dL Urine Ketones 15 mg/dL Urine Occult Blood NEG Urine Nitrite NEG Urine Bilirubin NEGATIVE Urine Leukocyte Esterase TRACE Urine RBC 0-3 /hpf Urine WBC 20-24 /hpf Urine WBC Clumps FEW Urine Squamous Epithelial Cells > 8 /hpf Urine Amorphous Sediment FEW Urine Bacteria FEW /hpf Microscopic Urinalysis Comment CULTURE INDICATED Urine Collection Time 1207 White Blood Count 6.2 TH/MM3 Red Blood Count 3.95 MIL/MM3 Hemoglobin 12.3 GM/DL Hematocrit 37.6 % Mean Corpuscular Volume 95.1 FL Mean Corpuscular Hemoglobin 31.0 PG Mean Corpuscular Hemoglobin Concent 32.6 % Red Cell Distribution Width 11.7 % Platelet Count 164 TH/MM3 Mean Platelet Volume 8.9 FL Neutrophils (%) (Auto) 55.3 % Lymphocytes (%) (Auto) 31.5 % Monocytes (%) (Auto) 8.7 % Eosinophils (%) (Auto) 4.1 % Basophils (%) (Auto) 0.4 % Neutrophils # (Auto) 3.4 TH/MM3 Lymphocytes # (Auto) 2.0 TH/MM3 Monocytes # (Auto) 0.5 TH/MM3 Eosinophils # (Auto) 0.3 TH/MM3 Basophils # (Auto) 0.0 TH/MM3 CBC Comment DIFF FINAL Differential Comment Blood Urea Nitrogen 10 MG/DL Creatinine 0.80 MG/DL Random Glucose 78 MG/DL Total Protein 6.3 GM/DL Albumin 3.0 GM/DL Calcium Level 8.4 MG/DL Alkaline Phosphatase 43 U/L Aspartate Amino Transf (AST/SGOT) 11 U/L Alanine Aminotransferase (ALT/SGPT) 13 U/L Total Bilirubin 0.1 MG/DL Sodium Level 141 MEQ/L Potassium Level 4.1 MEQ/L Chloride Level 111 MEQ/L Carbon Dioxide Level 27.7 MEQ/L Anion Gap 2 MEQ/L Estimat Glomerular Filtration Rate 87 ML/MIN Lipase 450 U/L MDM Medical Decision Making Medical Screen Exam Complete: Yes Emergency Medical Condition: Yes Interpretation(s) Last Impressions Gall Bladder Ultrasound 05/14/17 0000 Signed Impressions: Service Date/Time: Sunday, May 14, 2017 13:55 - CONCLUSION: 1. Cholelithiasis with mild gallbladder wall thickening. 2. Otherwise normal exam. Fawad Robert MD 1550 p.m. CBC WBC 6.2. Normal differential. Total bili 0.1. AST 11. ALT 13. Alkaline phosphatase 43. Lipase 450. Differential Diagnosis Differential diagnosis including gastritis, PUD, pancreatitis, cholecystitis, colitis, UTI, pyelonephritis, nephrolithiasis. Narrative Course 26 years old female with right upper quadrant abdominal pain. Normal saline solution 1 25 cc an hour. Pepcid 20 mg IV. Patient was advised to be admitted for consultation with vocal music teacher and surgeon. Patient refuses admission. Patient states that she needs to go home. Diagnosis Primary Impression: Cholelithiasis Qualified Codes: K80.00 - Calculus of gallbladder with acute cholecystitis without obstruction Additional Impression: Pancreatitis Qualified Codes: K85.10 - Biliary acute pancreatitis without necrosis or infection Admitting Information Admitting Physician Requests: Admit Patient Instructions: General Instructions Additional Instructions: Patient refused the patient. Patient was given prescription and follow-up with general surgeon. Advised patient to return if she changed her mind and want to be admitted for surgery Med/Other Pt SpecificInfo: Prescription(s) given Scripts Pantoprazole (Protonix) 20 Mg Tab 20 MG PO DAILY for Reflux, #30 TAB 0 Refills Prov: Jaciel Manriquez MD 05/14/17 Disposition: 01 DISCHARGE HOME Condition: Stable Jaciel Manriquez MD May 14, 2017 12:57
[2017-05-14] MEDS ORDERED: SODIUM CHLORIDE 0.9% FLUSH 10 ML FLUSH IV FLUSH PRN (13:00)
[2017-05-14 13:10] VITALS: O2SAT 98
[2017-05-14 13:16] LABS: AUTOMATED NEUTROPHIL # 3.4 TH/MM3 (1.8-7.7); BASOPHIL % 0.4 % (0.0-2.0); EOSINOPHIL # 0.3 TH/MM3 (0-0.4); EOSINOPHIL % 4.1 % (0.0-4.0); HEMATOCRIT 37.6 % (35.0-46.0); HEMOGLOBIN 12.3 GM/DL (11.6-15.3); LYMPH % 31.5 % (9.0-44.0); MEAN CELL VOLUME 95.1 FL (80.0-100.0); MEAN CORPUSCULAR HGB CONC 32.6 % (32.0-36.0); MEAN PLATELET VOLUME 8.9 FL (7.0-11.0); MONO % 8.7 % (0.0-8.0); MONOCYTE # 0.5 TH/MM3 (0-0.9); NEUT % 55.3 % (16.0-70.0); PLATELET COUNT 164 TH/MM3 (150-450); RED BLOOD COUNT 3.95 MIL/MM3 (4.00-5.30); RED CELL DISTRIBUTION WIDTH 11.7 % (11.6-17.2); WHITE BLOOD COUNT 6.2 TH/MM3 (4.0-11.0)
[2017-05-14 13:25] LABS: CHLORIDE 111 MEQ/L (98-107); SODIUM (NA) 141 MEQ/L (136-145)
[2017-05-14 13:29] LABS: CALCIUM 8.4 MG/DL (8.5-10.1)
[2017-05-14 13:30] LABS: BICARBONATE 27.7 MEQ/L (21.0-32.0); BLOOD UREA NITROGEN 10 MG/DL (7-18); GLUCOSE,RANDOM 78 MG/DL (74-106)
[2017-05-14 13:33] LABS: ALT (GPT) 13 U/L (10-53); AST (GOT) 11 U/L (15-37); GLOMERULAR FILTRATION RATE 87 ML/MIN (>89)
[2017-05-14 13:35] LABS: TOTAL BILIRUBIN ADULT 0.1 MG/DL (0.2-1.0); TOTAL PROTEIN 6.3 GM/DL (6.4-8.2)
[2017-05-14 13:36] LABS: ALKALINE PHOSPHATASE 43 U/L (45-117)
--- NOTE | 2017-05-14 14:33 | RADRPT ---
EXAM DATE/TIME: 05/14/2017 13:55 [facility] COMPARISON: No previous studies available for comparison. INDICATIONS : Right upper quadrant pain. MEDICAL HISTORY : Staph infection right axilla. Tobacco use. SURGICAL HISTORY : Tonsillectomy. ENCOUNTER: Initial ACUITY: 3 days PAIN SCORE: 7/10 LOCATION: Right upper quadrant MEASUREMENTS: LIVER: 16.0 cm length COMMON DUCT: 4 mm RIGHT KIDNEY: 11.9 x 5.3 x 4.8 cm FINDINGS: LIVER: Normal echotexture without focal lesion or ductal dilatation. COMMON DUCT: No intraluminal mass or stone visualized. GALLBLADDER: Multiple large stones with acoustic shadowing are noted. There is mild gallbladder wall thickening bu t no evidence of pericholecystic fluid. PANCREAS: The visualized portions are within normal limits. RIGHT KIDNEY: No evidence of hydronephrosis, stone, or mass. CONCLUSION: 1. Cholelithiasis with mild gallbladder wall thickening. 2. Otherwise normal exam. Fawad Robert MD on May 14, 2017 at 14:28 Board Certified Radiologist. This report was verified electronically.
[2017-05-14] MEDS ORDERED: PANT20 PO (16:35)
[2017-05-14 16:56] VITALS: BP 132/88
== END 2017-05-14 16:58 | disposition home or self-care (01) ==
LOC: PHED 11:52
DX: K80.00 Calculus of gallbladder with acute cholecystitis without obstruction (principal); K85.10 Biliary acute pancreatitis without necrosis or infection; F17.210 Nicotine dependence, cigarettes, uncomplicated
CPT/HCPCS: 76705; 80053; 81001; 83690; 84703; 85025; 87086; 99284

== ENCOUNTER 2017-05-16 18:43 | Emergency (ER) | payer MEDICAID ==
[~2017-05-16] VITALS: Ht 165.1 cm; Wt 108.0 kg
[~2017-05-16 18:43] MED LIST changes: -IBUP-232 PO; +PANT20 PO; -PREN29TA PO; +TYLE325T PO; -VENTAER INH
[2017-05-16 18:45] VITALS: BP 157/89; PULSE 91; RESP 16; TEMP 97.8; O2SAT 99
--- NOTE | 2017-05-16 19:13 | PD ---
HPI Chief Complaint: Abdominal Pain Time Seen by Provider: 19:00 Travel History International Travel<30 days: No Contact w/Intl Traveler<30days: No Traveled to known affect area: No History of Present Illness HPI The patient was seen and examined in the presence of the nurse. This patient complains of abdominal pain. Location is right upper quadrant. She was seen here 2 days ago for the same thing. She signed out AMA because she didn't have a sound engineer audio control. Now she has a sound engineer audio control comes back complaining of the same pain but only worse. She tried eat this morning but vomited afterwards. Is moderately severe. No alleviating factors. Symptoms are exacerbated by eating. Denies abdominal surgery. No fevers. PFSH Past Medical History Diminished Hearing: No Headaches: Yes Integumentary: Yes (STAPH INFECTION-ARM PIT (RIGHT)) Immunizations Current: Yes Tetanus Vaccination: < 5 Years Influenza Vaccination: No ?: Not LMP: 05-07-18 : 3 Para: 1 Miscarriage: 2 : 0 Past Surgical History Tonsillectomy: Yes (AT 3Y/O) Family History Family Hypercholesterolemia: Yes (FATHER AND MOTHER) Social History Alcohol Use: No Tobacco Use: Yes (smokes a half a pack of cigarettes per day) Substance Use: No Allergies-Medications (Allergen,Severity, Reaction): Coded Allergies: codeine (Unverified Allergy, Severe, 05/16/17) heart palpitations Reported Meds & Prescriptions Reported Meds & Active Scripts Active Tramadol (Tramadol HCl) 50 Mg Tab 50 Mg PO Q6H PRN Zofran (Ondansetron HCl) 4 Mg Tab 4 Mg PO Q6HR PRN Protonix (Pantoprazole Sodium) 20 Mg Tab 20 Mg PO DAILY Review of Systems General / Constitutional: No: Fever Eyes: No: Visual changes HENT: No: Headaches Cardiovascular: No: Chest Pain or Discomfort Respiratory: No: Shortness of Breath Gastrointestinal: Positive: Nausea, Vomiting, Abdominal Pain Genitourinary: No: Dysuria Musculoskeletal: No: Pain Skin: No Rash Neurologic: No: Weakness Psychiatric: No: Depression Endocrine: No: Polydipsia Hematologic/Lymphatic: No: Easy Bruising Physical Exam Narrative GENERAL: Well-nourished, well-developed patient with abdominal pain SKIN: Focused skin assessment reveals no rash and nodules. Skin is Warm and dry. HEAD: Atraumatic. Normocephalic. EYES: Pupils equal and round. No scleral icterus. No injection or drainage. ENT: No nasal bleeding or discharge. Mucous membranes pink and moist. NECK: Trachea midline. No JVD. CARDIOVASCULAR: Regular rate and rhythm. No murmur appreciated. RESPIRATORY: No accessory muscle use. Clear to auscultation. Breath sounds equal bilaterally. GASTROINTESTINAL: Abdomen soft, right upper quadrant is tender but no rebound or guarding, nondistended. Hepatic and splenic margins not palpable. MUSCULOSKELETAL: No obvious deformities. No clubbing. No cyanosis. No edema. NEUROLOGICAL: Awake and alert. No obvious cranial nerve deficits. Motor grossly within normal limits. Normal speech. PSYCHIATRIC: Appropriate mood and affect; insight and judgment normal. Data Data Last Documented VS Vital Signs Date Time Temp Pulse Resp B/P (MAP) Pulse Ox O2 Delivery O2 Flow Rate FiO2 05/16/17 19:07 18 05/16/17 18:45 97.8 91 157/89 (111) 99 Orders Orders Complete Blood Count With Diff (05/16/17 19:08) Comprehensive Metabolic Panel (05/16/17 19:08) Lipase (05/16/17 19:08) Iv Access Insert/Monitor (05/16/17 19:08) NPO (05/16/17 19:08) Sodium Chloride 0.9% Flush (Ns Flush) (05/16/17 19:15) Labs Laboratory Tests Test 05/16/17 19:38 White Blood Count 6.7 TH/MM3 Red Blood Count 3.92 MIL/MM3 Hemoglobin 12.7 GM/DL Hematocrit 36.9 % Mean Corpuscular Volume 94.2 FL Mean Corpuscular Hemoglobin 32.4 PG Mean Corpuscular Hemoglobin Concent 34.3 % Red Cell Distribution Width 12.1 % Platelet Count 175 TH/MM3 Mean Platelet Volume 9.4 FL Neutrophils (%) (Auto) 53.7 % Lymphocytes (%) (Auto) 35.5 % Monocytes (%) (Auto) 6.0 % Eosinophils (%) (Auto) 4.0 % Basophils (%) (Auto) 0.8 % Neutrophils # (Auto) 3.5 TH/MM3 Lymphocytes # (Auto) 2.4 TH/MM3 Monocytes # (Auto) 0.4 TH/MM3 Eosinophils # (Auto) 0.3 TH/MM3 Basophils # (Auto) 0.1 TH/MM3 CBC Comment DIFF FINAL Differential Comment Blood Urea Nitrogen 9 MG/DL Creatinine 0.67 MG/DL Random Glucose 90 MG/DL Total Protein 6.7 GM/DL Albumin 3.2 GM/DL Calcium Level 8.6 MG/DL Alkaline Phosphatase 41 U/L Aspartate Amino Transf (AST/SGOT) 15 U/L Alanine Aminotransferase (ALT/SGPT) 13 U/L Total Bilirubin 0.1 MG/DL Sodium Level 138 MEQ/L Potassium Level 3.7 MEQ/L Chloride Level 108 MEQ/L Carbon Dioxide Level 25.6 MEQ/L Anion Gap 4 MEQ/L Estimat Glomerular Filtration Rate 106 ML/MIN Lipase 188 U/L MDM Medical Decision Making Medical Screen Exam Complete: Yes Emergency Medical Condition: Yes Medical Record Reviewed: Yes Differential Diagnosis Cholecystitis, biliary colic, cholelithiasis Narrative Course I have reviewed the patient's electronic medical record. Reviewed her visit and ultrasound and labs from 2 days ago IV placed CBC is normal metabolic profile is normal LFT's are normal lipase is normal On recheck this patient is asymptomatic. She is not having pain now. I think she has biliary colic. I reviewed with general surgeon Dr. Cortez. He agrees and would be fine discharge her. I did write her some in for nausea and pain and recommended a low-fat bland diet. She should follow-up with outpatient general surgery. Dr. Cortez suggested Dr. Bang as follow-up as he does not to the [facility] Diagnosis Primary Impression: Biliary colic Additional Instructions: Have a low-fat bland diet The patient was warned about potential sedation for the medications they will receive on prescription. Follow up with Dr. Bang, general surgery Med/Other Pt SpecificInfo: Prescription(s) given Scripts Tramadol (Tramadol) 50 Mg Tab 50 MG PO Q6H Y for PAIN, #20 TAB 0 Refills Prov: Adrian Morgan MD 05/16/17 Ondansetron (Zofran) 4 Mg Tab 4 MG PO Q6HR Y for NAUSEA OR VOMITING, #12 TAB 0 Refills Prov: Adrian Morgan MD 05/16/17 Disposition: 01 DISCHARGE HOME Condition: Stable Adrian Morgan MD May 16, 2017 19:13
[2017-05-16] MEDS ORDERED: SODIUM CHLORIDE 0.9% FLUSH 10 ML FLUSH IV FLUSH PRN (19:15)
[2017-05-16 19:55] LABS: AUTOMATED NEUTROPHIL # 3.5 TH/MM3 (1.8-7.7); BASOPHIL # 0.1 TH/MM3 (0-0.2); BASOPHIL % 0.8 % (0.0-2.0); EOSINOPHIL # 0.3 TH/MM3 (0-0.4); HEMATOCRIT 36.9 % (35.0-46.0); HEMOGLOBIN 12.7 GM/DL (11.6-15.3); LYMPH % 35.5 % (9.0-44.0); LYMPHOCYTE # 2.4 TH/MM3 (1.0-4.8); MEAN CELL VOLUME 94.2 FL (80.0-100.0); MEAN CORPUSCULAR HEMOGLOBIN 32.4 PG (27.0-34.0); MEAN CORPUSCULAR HGB CONC 34.3 % (32.0-36.0); MEAN PLATELET VOLUME 9.4 FL (7.0-11.0); MONOCYTE # 0.4 TH/MM3 (0-0.9); NEUT % 53.7 % (16.0-70.0); PLATELET COUNT 175 TH/MM3 (150-450); RED BLOOD COUNT 3.92 MIL/MM3 (4.00-5.30); RED CELL DISTRIBUTION WIDTH 12.1 % (11.6-17.2); WHITE BLOOD COUNT 6.7 TH/MM3 (4.0-11.0)
[2017-05-16 20:06] LABS: CHLORIDE 108 MEQ/L (98-107); SODIUM (NA) 138 MEQ/L (136-145)
[2017-05-16 20:09] LABS: CALCIUM 8.6 MG/DL (8.5-10.1)
[2017-05-16 20:10] LABS: ALBUMIN 3.2 GM/DL (3.4-5.0); BICARBONATE 25.6 MEQ/L (21.0-32.0); BLOOD UREA NITROGEN 9 MG/DL (7-18); GLUCOSE,RANDOM 90 MG/DL (74-106)
[2017-05-16 20:13] LABS: ALT (GPT) 13 U/L (10-53); AST (GOT) 15 U/L (15-37); CREATININE 0.67 MG/DL (0.50-1.00); GLOMERULAR FILTRATION RATE 106 ML/MIN (>89)
[2017-05-16 20:14] LABS: TOTAL BILIRUBIN ADULT 0.1 MG/DL (0.2-1.0); TOTAL PROTEIN 6.7 GM/DL (6.4-8.2)
[2017-05-16 20:16] LABS: ALKALINE PHOSPHATASE 41 U/L (45-117)
[2017-05-16] MEDS ORDERED: ZOFR4TAB PO (20:51)
[2017-05-16] MEDS ORDERED: TRAM50TA PO (20:51)
[2017-05-16 21:08] VITALS: BP 157/89
== END 2017-05-16 21:14 | disposition home or self-care (01) ==
LOC: PHED 18:43
DX: K80.50 Calculus of bile duct without cholangitis or cholecystitis without obstruction (principal); F17.210 Nicotine dependence, cigarettes, uncomplicated; Z79.899 Other long term (current) drug therapy; Z88.5 Allergy status to narcotic agent
CPT/HCPCS: 80053; 83690; 85025; 99283

== ENCOUNTER 2017-05-27 04:14 | Emergency (ER) | payer MEDICAID ==
[~2017-05-27] VITALS: Ht 166.4 cm; Wt 104.5 kg
[~2017-05-27 04:14] MED LIST changes: +TRAM50TA PO; -TYLE325T PO; +ZOFR4TAB PO
[2017-05-27 04:20] VITALS: BP 117/61; PULSE 89; RESP 22; TEMP 97.7
[2017-05-27] MEDS ORDERED: SODIUM CHLOR 0.9% 1000 ML INJ 1,000 ML IV SCH (04:20)
--- NOTE | 2017-05-27 04:25 | PD ---
HPI Chief Complaint: Abdominal Pain Time Seen by Provider: 04:20 Travel History International Travel<30 days: No Contact w/Intl Traveler<30days: No Traveled to known affect area: No History of Present Illness HPI 26-year-old female presents to the emergency department from home by EMS transport for evaluation of abdominal pain. Patient complains of primarily upper and right upper quadrant abdominal pain. Patient denies fever chills nausea vomiting or anorexia. Patient has been nauseated. Reportedly patient has not had vomiting or anorexia. Patient denies and is currently menstruating. Patient has been treated in the past for cholelithiasis as well. This is patient's third visit this year for same complaint. Patient has made appointment with primary care provider and surgeon regarding history of gallstones. PFSH Past Medical History Diminished Hearing: No Headaches: Yes Integumentary: Yes (STAPH INFECTION-ARM PIT (RIGHT)) Immunizations Current: Yes : 3 Para: 1 Miscarriage: 2 : 0 Past Surgical History Tonsillectomy: Yes (AT 3Y/O) Family History Family Hypercholesterolemia: Yes (FATHER AND MOTHER) Social History Alcohol Use: No Tobacco Use: Yes (smokes a half a pack of cigarettes per day) Substance Use: No Allergies-Medications (Allergen,Severity, Reaction): Coded Allergies: codeine (Unverified Allergy, Severe, 05/27/17) heart palpitations Reported Meds & Prescriptions Reported Meds & Active Scripts Active Zofran Odt (Ondansetron Odt) 4 Mg Tab 4 Mg SL Q6HR PRN Tramadol (Tramadol HCl) 50 Mg Tab 50 Mg PO Q6H PRN Macrobid (Nitrofurantoin Monoh/Nitrofur Macro) 100 Mg Cap 100 Mg PO BID Tramadol (Tramadol HCl) 50 Mg Tab 50 Mg PO Q6H PRN Zofran (Ondansetron HCl) 4 Mg Tab 4 Mg PO Q6HR PRN Protonix (Pantoprazole Sodium) 20 Mg Tab 20 Mg PO DAILY Review of Systems Except as stated in HPI: all other systems reviewed are Neg Physical Exam Narrative GENERAL: Clinically morbidly obese female no acute distress no respiratory distress mild diaphoresis SKIN: Warm and dry. HEAD: Normocephalic. EYES: No scleral icterus. No injection or drainage. NECK: Supple, trachea midline. No JVD or lymphadenopathy. CARDIOVASCULAR: Regular rate and rhythm without murmurs, gallops, or rubs. RESPIRATORY: Breath sounds equal bilaterally. No accessory muscle use. GASTROINTESTINAL: Abdomen soft, epigastric and right upper quadrant tenderness to palpation without guarding or rebound, nondistended. MUSCULOSKELETAL: No cyanosis, or edema. BACK: Nontender without obvious deformity. No CVA tenderness. Data Data Last Documented VS Vital Signs Date Time Temp Pulse Resp B/P (MAP) Pulse Ox O2 Delivery O2 Flow Rate FiO2 05/27/17 06:09 05/27/17 05:43 61 16 100 Room Air 05/27/17 04:20 97.7 Orders Orders Complete Blood Count With Diff (05/27/17 04:20) Comprehensive Metabolic Panel (05/27/17 04:20) Lipase (05/27/17 04:20) Lactic Acid (05/27/17 04:20) Urinalysis - C+S If Indicated (05/27/17 04:20) Ct Abd/Pel W Iv Contrast(Rout) (05/27/17 04:20) Iv Access Insert/Monitor (05/27/17 04:20) Ecg Monitoring (05/27/17 04:20) Oximetry (05/27/17 04:20) Ondansetron Inj (Zofran Inj) (05/27/17 04:30) Pantoprazole Inj (Protonix Inj) (05/27/17 04:30) Sodium Chlor 0.9% 1000 Ml Inj (Ns 1000 M (05/27/17 04:20) Sodium Chloride 0.9% Flush (Ns Flush) (05/27/17 04:30) Ed Urine Pregnancytest Poc (05/27/17 04:20) Morphine Inj (Morphine Inj) (05/27/17 05:00) Iohexol 350 Inj (Omnipaque 350 Inj) (05/27/17 05:14) Ed Discharge Order (05/27/17 05:54) Labs Laboratory Tests Test 05/27/17 04:40 White Blood Count 9.0 TH/MM3 Red Blood Count 4.21 MIL/MM3 Hemoglobin 13.7 GM/DL Hematocrit 39.8 % Mean Corpuscular Volume 94.5 FL Mean Corpuscular Hemoglobin 32.6 PG Mean Corpuscular Hemoglobin Concent 34.4 % Red Cell Distribution Width 11.4 % Platelet Count 181 TH/MM3 Mean Platelet Volume 9.6 FL Neutrophils (%) (Auto) 58.6 % Lymphocytes (%) (Auto) 30.4 % Monocytes (%) (Auto) 6.3 % Eosinophils (%) (Auto) 3.3 % Basophils (%) (Auto) 1.4 % Neutrophils # (Auto) 5.3 TH/MM3 Lymphocytes # (Auto) 2.7 TH/MM3 Monocytes # (Auto) 0.6 TH/MM3 Eosinophils # (Auto) 0.3 TH/MM3 Basophils # (Auto) 0.1 TH/MM3 CBC Comment DIFF FINAL Differential Comment Urine Color YELLOW Urine Turbidity CLEAR Urine pH 6.5 Urine Specific [place] 1.018 Urine Protein NEG mg/dL Urine Glucose (UA) NEG mg/dL Urine Ketones NEG mg/dL Urine Occult Blood NEG Urine Nitrite NEG Urine Bilirubin NEG Urine Leukocyte Esterase SMALL Urine RBC 0-3 /hpf Urine WBC 6-8 /hpf Urine Squamous Epithelial Cells 0-5 /hpf Urine Bacteria NONE /hpf Microscopic Urinalysis Comment CULT NOT INDICATED Blood Urea Nitrogen 8 MG/DL Creatinine 0.89 MG/DL Random Glucose 101 MG/DL Total Protein 7.2 GM/DL Albumin 3.5 GM/DL Calcium Level 8.3 MG/DL Alkaline Phosphatase 55 U/L Aspartate Amino Transf (AST/SGOT) 16 U/L Alanine Aminotransferase (ALT/SGPT) 18 U/L Total Bilirubin 0.2 MG/DL Sodium Level 138 MEQ/L Potassium Level 3.4 MEQ/L Chloride Level 107 MEQ/L Carbon Dioxide Level 29.3 MEQ/L Anion Gap 2 MEQ/L Estimat Glomerular Filtration Rate 77 ML/MIN Lactic Acid Level 1.8 mmol/L Lipase 180 U/L MDM Medical Decision Making Medical Screen Exam Complete: Yes Emergency Medical Condition: Yes Medical Record Reviewed: Yes Interpretation(s) Last Impressions Abdomen/Pelvis CT 05/27/17 0420 Signed Impressions: Service Date/Time: May 05:08 - CONCLUSION: Cholelithiasis otherwise unremarkable. Mk Tom MD CBC & BMP Diagram 05/27/17 04:40 Total Protein 7.2, Albumin 3.5, Calcium Level 8.3 L, Alkaline Phosphatase 55, Aspartate Amino Transf (AST/SGOT) 16, Alanine Aminotransferase (ALT/SGPT) 18, Total Bilirubin 0.2 Vital Signs Date Time Temp Pulse Resp B/P (MAP) Pulse Ox O2 Delivery O2 Flow Rate FiO2 05/27/17 05:43 61 16 113/64 (80) 100 Room Air 05/27/17 05:42 16 05/27/17 04:44 22 98 Room Air 05/27/17 04:20 97.7 89 22 117/61 (79) Differential Diagnosis Abdominal pain biliary colic acute cholecystitis choledocholithiasis pancreatitis gastritis peptic ulcer disease this Narrative Course Patient placed on monitor IV access obtained specimens collected and sent for resulting patient administered IV fluids Zofran and morphine Patient reassessed comfortable and denies any abdominal pain on reexamination no epigastric or right upper quadrant tenderness and no clinical Rodriguez sign Lab values resulted and no leukocytosis and abnormal LFTs CT identifies cholelithiasis otherwise unremarkable Lab values and CT imaging discussed with patient who is desirous of being discharged home encouraged strongly to follow-up with general surgery to schedule outpatient evaluation and possible elective cholecystectomy encouraged to follow low-fat diet Diagnosis Primary Impression: Recurrent biliary colic Additional Impression: UTI (urinary tract infection) Referrals: General Surgeon call for appointment Primary Care Physician call for appointment Patient Instructions: General Instructions, Narcotic given in the ED Additional Instructions: Increase fluid hydration Follow clear liquid diet for next 12-24 hours advance as tolerated to bland diet avoiding fried and fatty foods Take antibiotic as prescribed Use Zofran as prescribed as needed for nausea and/or vomiting Take pain medication as prescribed as needed Follow-up with your primary care provider and general surgeon as planned Return to the emergency department for concerns or change in condition Take acetaminophen/Tylenol every 4 hours as needed for fever 100.4F or greater May take as tolerated ibuprofen/Advil/Motrin 600 mg as often as every 6 hours as needed for pain associated inflammation or maximum dose of 800 mg no more frequently than every 8 hours take this with food or antacid and avoid prolonged use of high-dose ibuprofen Med/Other Pt SpecificInfo: Prescription(s) given Scripts Ondansetron Odt (Zofran Odt) 4 Mg Tab 4 MG SL Q6HR Y for Nausea/Vomiting, #10 TAB 0 Refills Prov: Ally Patterson MD 05/27/17 Tramadol (Tramadol) 50 Mg Tab 50 MG PO Q6H Y for PAIN, #7 TAB 0 Refills Prov: Ally Patterson MD 05/27/17 Nitrofurantoin Monohydrate Macrocrystals (Macrobid) 100 Mg Cap 100 MG PO BID for Infection, #6 CAP 0 Refills Prov: Ally Patterson MD 05/27/17 Disposition: 01 DISCHARGE HOME Condition: Stable Ally Patterson MD May 27, 2017 04:25
[2017-05-27] MEDS ORDERED: ONDANSETRON HCL 4 MG/2 ML VIAL IVP ONE (04:30)
[2017-05-27] MEDS ORDERED: PANTOPRAZOLE SODIUM 40 MG VIAL IVP ONE (04:30)
[2017-05-27] MEDS ORDERED: SODIUM CHLORIDE 0.9% FLUSH 10 ML FLUSH IV FLUSH PRN (04:30)
[2017-05-27 04:44] VITALS: RESP 22; O2SAT 98
[2017-05-27 04:45] LABS: BILIRUBIN, URINE NEG (NEG); BLOOD, URINE NEG (NEG); GLUCOSE,URINE NEG (NEG); KETONE, URINE NEG (NEG); NITRITE,URINE NEG (NEG); PH, URINE 6.5 (5.0-8.5); URINE LEUKOCYTE ESTERASE SMALL (NEG)
[2017-05-27 04:54] LABS: AUTOMATED NEUTROPHIL # 5.3 TH/MM3 (1.8-7.7); BASOPHIL # 0.1 TH/MM3 (0-0.2); BASOPHIL % 1.4 % (0.0-2.0); CHLORIDE 107 MEQ/L (98-107); EOSINOPHIL # 0.3 TH/MM3 (0-0.4); EOSINOPHIL % 3.3 % (0.0-4.0); HEMATOCRIT 39.8 % (35.0-46.0); HEMOGLOBIN 13.7 GM/DL (11.6-15.3); LYMPH % 30.4 % (9.0-44.0); LYMPHOCYTE # 2.7 TH/MM3 (1.0-4.8); MEAN CELL VOLUME 94.5 FL (80.0-100.0); MEAN CORPUSCULAR HEMOGLOBIN 32.6 PG (27.0-34.0); MEAN CORPUSCULAR HGB CONC 34.4 % (32.0-36.0); MEAN PLATELET VOLUME 9.6 FL (7.0-11.0); MONO % 6.3 % (0.0-8.0); MONOCYTE # 0.6 TH/MM3 (0-0.9); NEUT % 58.6 % (16.0-70.0); PLATELET COUNT 181 TH/MM3 (150-450); RED BLOOD COUNT 4.21 MIL/MM3 (4.00-5.30); RED CELL DISTRIBUTION WIDTH 11.4 % (11.6-17.2); SODIUM (NA) 138 MEQ/L (136-145)
[2017-05-27 04:57] LABS: CALCIUM 8.3 MG/DL (8.5-10.1)
[2017-05-27 04:58] LABS: ALBUMIN 3.5 GM/DL (3.4-5.0); BICARBONATE 29.3 MEQ/L (21.0-32.0); BLOOD UREA NITROGEN 8 MG/DL (7-18); GLUCOSE,RANDOM 101 MG/DL (74-106)
[2017-05-27 05:00] LABS: RBC, URINE 0-3 /hpf (0-3); SQUAMOUS EPITHELIAL CELL URINE 0-5 /hpf (0-5); URINE COLOR YELLOW (YELLW/STRAW)
[2017-05-27] MEDS ORDERED: MORPHINE SULFATE 2 MG/ML INJ IV PUSH ONE (05:00)
[2017-05-27 05:01] LABS: ALT (GPT) 18 U/L (10-53); AST (GOT) 16 U/L (15-37); CREATININE 0.89 MG/DL (0.50-1.00); GLOMERULAR FILTRATION RATE 77 ML/MIN (>89)
[2017-05-27 05:02] LABS: TOTAL BILIRUBIN ADULT 0.2 MG/DL (0.2-1.0); TOTAL PROTEIN 7.2 GM/DL (6.4-8.2)
[2017-05-27 05:04] LABS: ALKALINE PHOSPHATASE 55 U/L (45-117)
[2017-05-27] MEDS ORDERED: IOHEXOL 350 MG/ML 10 ML VIAL (for RAD DIAG) IVCONTRAST ONE (05:14)
--- NOTE | 2017-05-27 05:34 | RADRPT ---
EXAM DATE/TIME: 05/27/2017 05:08 [facility] COMPARISON: US ABDOMEN - GALLBLADDER, May 14, 2017, 13:55. CT ABDOMEN & PELVIS W CONTRAST, January 25, 2014 , 22:21. INDICATIONS : Right sided abdominal pain. IV CONTRAST: 100 cc Omnipaque 350 (iohexol) IV ORAL CONTRAST: No oral contrast ingested. RADIATION DOSE: 21.47 CTDIvol (mGy) MEDICAL HISTORY : None SURGICAL HISTORY : None. ENCOUNTER: Initial ACUITY: 1 month PAIN SCALE: 10/10 LOCATION: abdomen TECHNIQUE: Volumetric scanning of the abdomen and pelvis was performed. Using automated exposure control and ad justment of the mA and/or kV according to patient size, radiation dose was kept as low as reasonably achievable to obtain optimal diagnostic quality images. DICOM format image data is available electro nically for review and comparison. FINDINGS: One liver, kidneys, spleen, pancreas, adrenal glands are unremarkable. Stomach, small bowel, large leora wel, appendix, urinary bladder, uterus and ovaries are unremarkable. The gallbladder is filled with s tones. No adenopathy or aneurysm. Lung bases are clear. Osseous structures are intact. CONCLUSION: Cholelithiasis otherwise unremarkable. Mk Tom MD on May 27, 2017 at 5:31 Board Certified Radiologist. This report was verified electronically.
[2017-05-27 05:43] VITALS: BP 113/64; PULSE 61; RESP 16; O2SAT 100
[2017-05-27] MEDS ORDERED: MACR100C2 PO (05:56)
[2017-05-27] MEDS ORDERED: ZOFR4TAB3 SL (05:56)
[2017-05-27] MEDS ORDERED: TRAM50TA PO (05:56)
== END 2017-05-27 06:11 | disposition home or self-care (01) ==
LOC: PHED 04:14
DX: K80.50 Calculus of bile duct without cholangitis or cholecystitis without obstruction (principal); N39.0 Urinary tract infection, site not specified; F17.210 Nicotine dependence, cigarettes, uncomplicated; Z88.5 Allergy status to narcotic agent; Z79.899 Other long term (current) drug therapy
CPT/HCPCS: 74177; 80053; 81001; 83605; 83690; 84703; 85025; 96361; 96374; 96375; 99284; C9113; J2270; J2405; J7030; Q9967

== ENCOUNTER 2017-07-24 13:45 | Emergency (ER) | payer MEDICAID ==
[~2017-07-24 13:45] MED LIST changes: +MACR100C2 PO; +ZOFR4TAB3 SL
[2017-07-24 14:09] VITALS: BP 114/56; PULSE 78; RESP 18; TEMP 98.9; O2SAT 98
[2017-07-24] MEDS ORDERED: AMOX500C PO (15:30)
--- NOTE | 2017-07-24 15:30 | PD ---
HPI Chief Complaint: ENT Complaint Time Seen by Provider: 14:53 Travel History International Travel<30 days: No Contact w/Intl Traveler<30days: No Traveled to known affect area: No History of Present Illness HPI 26-year-old female here with right ear pain 3 days. Pain is aching/throbbing and nonradiating in the left ear. She reports were preceded by nasal congestion. No fever chills. No change in hearing. Symptom severity is moderate. No aggravating or alleviating factors. PFSH Past Medical History Medical History: Denies Significant Hx Diminished Hearing: No Headaches: Yes Integumentary: Yes (STAPH INFECTION-ARM PIT (RIGHT)) Immunizations Current: Yes ?: Not : 3 Para: 1 Miscarriage: 2 : 0 Past Surgical History Tonsillectomy: Yes (AT 3Y/O WITH ADENOIDS) Family History Family Hypercholesterolemia: Yes (FATHER AND MOTHER) Social History Alcohol Use: No Tobacco Use: Yes (smokes a half a pack of cigarettes per day) Substance Use: No Allergies-Medications (Allergen,Severity, Reaction): Coded Allergies: codeine (Unverified Allergy, Severe, 05/27/17) heart palpitations Reported Meds & Prescriptions Reported Meds & Active Scripts Active Amoxicillin 500 Mg Cap 500 Mg PO TID 10 Days Zofran Odt (Ondansetron Odt) 4 Mg Tab 4 Mg SL Q6HR PRN Tramadol (Tramadol HCl) 50 Mg Tab 50 Mg PO Q6H PRN Macrobid (Nitrofurantoin Monoh/Nitrofur Macro) 100 Mg Cap 100 Mg PO BID Tramadol (Tramadol HCl) 50 Mg Tab 50 Mg PO Q6H PRN Zofran (Ondansetron HCl) 4 Mg Tab 4 Mg PO Q6HR PRN Protonix (Pantoprazole Sodium) 20 Mg Tab 20 Mg PO DAILY Review of Systems Except as stated in HPI: all other systems reviewed are Neg General / Constitutional: No: Fever Eyes: No: Visual changes HENT: Positive: Earache Cardiovascular: No: Chest Pain or Discomfort Respiratory: No: Shortness of Breath Gastrointestinal: No: Abdominal Pain Genitourinary: No: Dysuria Physical Exam Narrative GENERAL: Alert and well-appearing 26-year-old female SKIN: Warm and dry. HEAD: Normocephalic. EYES: No scleral icterus. No injection or drainage. Ear/nose/throat: Right TM erythema, bulging, loss of landmarks. No canal swelling or drainage. No mastoid tenderness. NECK: Supple, trachea midline. No JVD or lymphadenopathy. CARDIOVASCULAR: Regular rate and rhythm without murmurs, gallops, or rubs. RESPIRATORY: Breath sounds equal bilaterally. No accessory muscle use. GASTROINTESTINAL: Abdomen soft, non-tender, nondistended. MUSCULOSKELETAL: No cyanosis, or edema. BACK: Nontender without obvious deformity. No CVA tenderness. Data Data Last Documented VS Vital Signs Date Time Temp Pulse Resp B/P (MAP) Pulse Ox O2 Delivery O2 Flow Rate FiO2 07/24/17 14:09 98.9 78 18 114/56 (75) 98 MDM Medical Decision Making Medical Screen Exam Complete: Yes Emergency Medical Condition: Yes Differential Diagnosis Otitis media, otitis externa, URI Narrative Course 26-year-old female with right otitis media. She is nontoxic appearing. She will be prescribed amoxicillin. Diagnosis Primary Impression: Otitis media Qualified Codes: H66.90 - Otitis media, unspecified, unspecified ear Referrals: Primary Care Physician Additional Instructions: Medication as directed. Tylenol and ibuprofen as needed for pain. Scripts Amoxicillin (Amoxicillin) 500 Mg Cap 500 MG PO TID for Infection for 10 Days, CAP 0 Refills Prov: Jahaira Orlando 07/24/17 Disposition: 01 DISCHARGE HOME Condition: Stable Jahaira Orlando Jul 24, 2017 15:30
== END 2017-07-24 15:43 | disposition home or self-care (01) ==
LOC: PHEFT 13:45
DX: H66.91 Otitis media, unspecified, right ear (principal); F17.210 Nicotine dependence, cigarettes, uncomplicated; Z88.5 Allergy status to narcotic agent
CPT/HCPCS: 99283